=== PATIENT | male | born 1985 | race Caucasian/White ===

== ENCOUNTER 2022-07-01 19:51 | Inpatient (IN) | payer MEDICAID, SELFPAY ==
[2022-07-01] VITALS (9 sets, daily range): BP systolic 129–154; BP diastolic 64–91; PULSE 79–103; RESP 12–18; TEMP 36.9–37.1; O2SAT 90–96; BMI 27.1; BMI 25.2
--- NOTE | 2022-07-01 20:00 | ECG_ITS ---
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 Measurements Intervals [place] Rate: 97 P: 52 [place]: 163 QRS: 73 QRSD: 88 T: 52 QT: 335 QTc: 427 Interpretive Statements SINUS RHYTHM POSSIBLE LEFT ATRIAL ENLARGEMENT [-0.1mV P-WAVE IN V1/V2] Compared to ECG 09/04/2016 18:16:11 Sinus tachycardia no longer present Early repolarization no longer present Electronically Signed On 07-02-2022 22:57:45 CDT by Felisa Pappas M.D. [email or web address].[employer]/store/NU/[id number]
[2022-07-01 20:29] LABS: Basophils # 0.1 10^3/uL (0.0-0.1); Basophils % 0.4 %; Eosinophils # 0.2 10^3/uL (0.0-0.8); Eosinophils % 1.4 %; Hematocrit 44.7 % (42.0-52.0); Hemoglobin 15.6 g/dL (11.7-16.6); Lymphocytes # 4.2 10^3/uL (0.8-4.8); Mean Corpuscular HGB Conc 34.9 g/dL (30.0-36.0); Mean Corpuscular Hemoglobin 32.2 pg (28.0-34.0); Mean Corpuscular Volume 92.4 fl (80-94); Mean Platelet Volume 9.5 fL (7.4-10.4); Monocytes # 0.6 10^3/uL (0.2-0.9); Monocytes % 4.3 %; Neutrophils # 8.92 10^3/uL (1.8-7.7); Neutrophils % 63.5 %; Nucleated Red Blood Cells % 0 %; Platelet Count 310 10^3/cmm (130-400); Red Blood Count 4.84 10^6/uL (4.1-5.3); White Blood Count 14.1 10^3/uL (4.0-10.0)
[2022-07-01 21:00] LABS: Alanine Aminotransferase 31 U/L (0-41); Albumin Level 4.5 g/dL (3.5-5.2); Alcohol Level 263 mg/dL (0-10); Alkaline Phosphatase 124 U/L (40-130); Anion Gap 17.9 (5-19); Aspartate Amino Transferase 37 U/L (0-40); Blood Urea Nitrogen 14 mg/dL (6-20); Calcium 9.7 mg/dL (8.5-10.5); Carbon Dioxide 25 mmol/L (22-29); Chloride 97 mmol/L (98-107); Globulin 3.7 g/dL (1.3-4.6); Glomerular Filtration Rate 95.5 mL/min (90-130); Glucose 83 mg/dL (65-115); Osmolality Calculated 282 mOsm/kg (285-295); Potassium 3.9 mmol/L (3.5-5.1); Sodium 136 mmol/L (136-145); Thyroid Stimulating Hormone 1.99 uIU/mL (0.27-4.20); Total Bilirubin 0.4 mg/dL (0.15-1.2); Total Protein 8.2 g/dL (6.6-8.7)
[2022-07-01 21:02] LABS: Add Urine Microscopic? NO; Charge for UA Resulting for Rev
[2022-07-01 21:04] LABS: Acetaminophen < 5.0 ug/mL (10-30); Salicylate < 0.3 mg/dL (3-10)
[2022-07-01] MEDS: sodium chloride 0.9% 1,000 ML 999 ML IV (21:04)
[2022-07-01 21:05] LABS: Bilirubin Urine Neg (Negative); Blood Urine Neg (Negative); Glucose Urine UA Norm (Normal); Ketones Urine Negative (Negative); Leukocyte Esterase Urine Negative (Negative); Nitrate Urine Negative (Negative); Protein Urine Neg (Negative); Specific Gravity, Urine 1.005 (1.005-1.030); Urine Appearance Clear (CLEAR); Urine Color Colorless (Yellow); Urobilinogen Urine Neg (Negative); pH Urine 6 (5-7)
[2022-07-01 21:14] LABS: Amphetamines Screen Urine Negative (Negative); Barbiturates Screen Urine Negative (Negative); Benzodiazepines Screen Urine Positive (Negative); Cocaine Screen Urine Negative (Negative); Opiate Screen Urine Negative (Negative); PCP Screen Urine Negative (Negative); THC Screen Urine Positive (Negative)
--- NOTE | 2022-07-01 23:15 | PC.NURSE ---
Pt arrived from ER via wheelchair @1913. pt belongings in labeled bags @ nurses station. Pt is calm and cooperative. 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 HR NSR 80's. SpO2 94%
--- NOTE | 2022-07-01 23:32 | P.HP_ITS ---
Providers/Chief Complaint Admitting Physician: Lambert Zendejas Chief Complaint: OD History of Present Illness 37-year-old gentleman was brought in for evaluation by EMS after overdose of a handful, at least 10 per EMS report fluoxetine tablets. Most recent prescription 06/18 of 30 tablets of 40 mg strength. An empty bottle was re ported. It is unclear if it was from the new prescription or prior. He reportedly did not think there would be any lethal consequences. Overdose happened around 6 PM. He had also reported drinking whiskey. Reported being angered and provoked. Noted abrasions on his knuckles which he states he hussein stained after forgetting gloves and training on a punching bag at the gym. In ER he is found to be with sinus tachycardia 103 BPM. EKG is requested. Leukocytosis 14.1. Unremarkable CMP, UA. UDS with ethyl alcohol level 263 mg/dL, THC, benzodiazepine. He confirms that he has been going through an emotional time, has been feeling depressed, states he has been trying to quit drinking and that has been a big factor for him feeling depressed. Denies suicidal intentions. He states that he has been seeing Dr. Mojica for depression who has been overseeing his medication although has not had therapy so far. Review of Systems Const: Denies: fever(s), chills, body aches or malaise Card: Denies: chest pain, edema, pre-syncope or dyspnea on exertion Resp: Denies: dyspnea, productive cough, change in phlegm color or hemoptysis GI: Denies: abdominal pain, nausea, vomiting, diarrhea, constipation, hematochezia or melena Musc: Denies: back pain, joint swelling or joint redness Skin/Breast: Denies: rash or new lesions Neuro: Denies: headache(s), numbness in extremities, weakness in extremities, dizziness, confusion or seizure-like activity Psych: Reports: depression Endo: Denies: polyuria or polydipsia Joe/Lymph: Denies: easy bleeding or tender lymph nodes All/Imm: Denies: urticaria or tongue swelling Medications/Allergies Home Medications Medication Instructions Recorded Confirmed Last Taken Type esomeprazole magnesium 20 mg 20 mg PO DAILY 02/28/22 06/18/22 Unknown History capsule,delayed release (Nexium 24HR) hydroxyzine HCl 50 mg tablet 50 mg PO QID PRN insomnia #120 tabs 08/26/22 10/10/22 Unknown Rx naltrexone 50 mg tablet 50 mg PO DAILY #30 tabs 05/04/22 06/18/22 Unknown Rx gabapentin 800 mg tablet 800 mg PO TID #90 tabs 06/08/22 06/18/22 Unknown Rx propranolol 20 mg tablet 20 mg PO BID PRN anxiety #60 tabs 06/08/22 06/18/22 Unknown Rx fluoxetine 40 mg capsule (Prozac) 40 mg PO DAILY #30 caps 06/18/22 06/18/22 Unknown Rx Allergies Allergy/AdvReac Type Severity Reaction Status Date / Time trazodone AdvReac Intermediate priapism Verified 07/01/22 23:44 PFSH Acute PFSH: Medical History History of alcohol use disorder Psychiatric care Family History Father CHF (congestive heart failure) Other Diabetes H/O ETOH abuse Social History Smoking and tobacco status: current every day smoker smokeless tobacco Smokeless tobacco user: snuff Smokeless tobacco details: 1 can/2-3 days. Quit status (tobacco): has tried quititng Number of times tried to quit tobacco: 2 Second hand smoke exposure: No Smoking risk assessment/counseling performed?: No Alcohol intake: current Alcohol intake frequency: 0-2 Drinks per Day Alcohol type: beer and hard liquor Desire information about alcohol rehabilitation?: No Counseling given: No Desire information about substance/drug rehabilitation?: No Counseling given: No Vitals/I&O/Wt Last Vital Signs Temp 98.4 F 07/01/22 19:56 Pulse 82 07/01/22 22:48 Resp 16 07/01/22 22:48 BP 131/72 07/01/22 21:30 Pulse Ox 96 07/01/22 22:48 O2 Del Method 07/01/22 21:00 Weight last 48 hrs Weight 88.451 kg Physical Exam Const: COMMON NORMALS: patient oriented x3 and alert GENERAL APPEARANCE: cooperative ORIENTATION/CONSCIOUSNESS: Yes awake HENMT: COMMON NORMALS: oropharynx normal Neck/C-Spine: COMMON NORMALS: no JVD Resp: COMMON NORMALS: normal respiratory effort and clear to auscultation bilaterally AUSCULTATION: clear to auscultation bilaterally Cardio: COMMON NORMALS: no JVD, regular rhythm, S1 normal heart sound present, S2 normal heart sound present and No murmurs present (Cardio) RHYTHM: regular rhythm HEART SOUNDS: S1 normal heart sound present and S2 normal heart sound present GI: COMMON NORMALS: Normal to inspection, nondistended, normoactive bowel sounds present, Soft to palpation and non-tender PALPATION: Yes Soft to palpation Extremity: COMMON NORMALS: no joint enlargement and no pedal edema Neuro: COMMON NORMALS: patient oriented x3 and moves all extremities SEN SORIUM/ORIENTATION: Yes alert Skin: COMMON NORMALS: no rashes or lesions noted GENERAL SKIN EXAM: no rashes or lesions noted Data : 07/01/22 20:00 07/01/22 20:00 A&P Assessment and plan (1) Medication overdose: He states he feels he took about 6 or 7 tablets, but he states that that is what was remaining in the bottle from a recent prescription of the 40 mg tablets, he took what ever was left in there. has been feeling depressed recently at least in part due to difficulties with quitting drinking. He states he has been taking 2 medications to help him with symptoms and reduce cravings of alcohol including naltrexone. Discussed with him we will monitor for development of arrhythmia with cardiac monitoring given also potential interaction with other medications including hydroxyzine, although he states he has taken fewer of those recently. Had been taking in the past to help him sleep. has not been taking trazodone. Will additionally reassess liver parameters in the morning, which he would like to do. Additional event discussed with him that he will be also assessed by psychiatry to also help assess depression and help him deal with it. (2) Depression: Pending psychiatric assessment. (3) Alcohol use disorder: He has been having difficulties quitting. Monitor for withdrawal, although had prior admission with intoxication, did not go through withdrawal at that time. Plan Smoking addiction: Nicotine replacement as needed. Encourage cessation. Leukocytosis: Not entirely clear reason of leukocytosis. Urinalysis not suggestive of UTI. She has not had respiratory or other symptoms. Possibly stress related, will reassess blood count again. Monitor for any changes in symptoms. Attestations Medical Necessity Statement*: Place in observation for additional assessment following medication overdose, depression, difficulties quitting alcohol, pending psychiatric assessment. 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
[2022-07-02] VITALS (38 sets, daily range): BP systolic 106–144; BP diastolic 60–83; PULSE 57–85; RESP 11–20; O2SAT 90–95
[2022-07-02 03:58] LABS: Basophils % 0.4 %; Eosinophils # 0.3 10^3/uL (0.0-0.8); Eosinophils % 2.7 %; Hematocrit 40.1 % (42.0-52.0); Hemoglobin 13.4 g/dL (11.7-16.6); Lymphocytes # 3.1 10^3/uL (0.8-4.8); Lymphocytes % 29.1 %; Mean Corpuscular HGB Conc 33.4 g/dL (30.0-36.0); Mean Corpuscular Hemoglobin 31.5 pg (28.0-34.0); Mean Corpuscular Volume 94.4 fl (80-94); Mean Platelet Volume 9.2 fL (7.4-10.4); Monocytes # 0.6 10^3/uL (0.2-0.9); Monocytes % 5.6 %; Neutrophils # 6.54 10^3/uL (1.8-7.7); Neutrophils % 61.9 %; Nucleated Red Blood Cells % 0 %; Platelet Count 231 10^3/cmm (130-400); Red Blood Count 4.25 10^6/uL (4.1-5.3); Red Cell Distribution Width 12.2 % (12.1-15.1); White Blood Count 10.6 10^3/uL (4.0-10.0)
[2022-07-02 04:27] LABS: Alanine Aminotransferase 25 U/L (0-41); Albumin Level 3.6 g/dL (3.5-5.2); Alkaline Phosphatase 99 U/L (40-130); Anion Gap 14.9 (5-19); Aspartate Amino Transferase 27 U/L (0-40); Blood Urea Nitrogen 12 mg/dL (6-20); Calcium 8.7 mg/dL (8.5-10.5); Carbon Dioxide 22 mmol/L (22-29); Chloride 103 mmol/L (98-107); Creatinine Clr Calc Pharmacy 140.7055; Globulin 3.1 g/dL (1.3-4.6); Glomerular Filtration Rate 109.4 mL/min (90-130); Glucose 70 mg/dL (65-115); Osmolality Calculated 280 mOsm/kg (285-295); Potassium 3.9 mmol/L (3.5-5.1); Sodium 136 mmol/L (136-145); Total Bilirubin 0.3 mg/dL (0.15-1.2); Total Protein 6.7 g/dL (6.6-8.7)
--- NOTE | 2022-07-02 12:36 | PC.CHAP ---
Pastoral Care Encounter/Spiritual Assessment Type of Contact [] Declined payable manager visit [] Patient/Family/Request visit [] Outpatient visit [] Follow-up visit [] Physician referral [] Code/Alert [z] Routine visit [] Staff referral [] Actively dying [] Patient sleeping [] Family support [] [] Out of room [] Palliative care [] [] Receiving care in room [] Pre-surgical visit [] Trauma [] Long length of stay [z] ICU visit [x] Other: PT not real social .. but agreed to prayer Relational/Emotional Strength [] Patient feels connected with others/family/visitors/staff [] Distress [] Loneliness/isolation [] Abandonment Spirituality of Patient [] Person of Marily [] Attends Sikh of their Marily [] Believes in Prayer [] Reads Bible or Confucianism materials [] There are Spiritual issues to be addressed Storage Administrator Interventions [z] Prayer [] Active listening [] Non-anxious presence [] Spiritual/emotional support [] Crisis/trauma care [] Spiritual counseling [] Bereavement support [] Provided bereavement packet [] Provided Bible/devotional materials [] Provided toy/stuffed animal, coloring book to patient or family member [] Provided Communion [] Anointing/[place] [] Salvation [] Completed spiritual assessment [] Other: Impact on Illness or Injury [] Angry [] Fearful [] Anxious [] Often cries [] Exhaustion [] Unable to work [] Unable to attend religious [] Unable to walk/stand [] Unable to read [] Unable to drive [] Unable to eat/drink [] Unable to sleep [] Unable to be with family [] Patient intubated [] Other: Summary Time spent with patient
--- NOTE | 2022-07-02 14:49 | ECG_ITS ---
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 Measurements Intervals [place] Rate: 69 P: 38 [place]: 167 QRS: 62 QRSD: 90 T: 46 QT: 412 QTc: 444 Interpretive Statements SINUS RHYTHM WITH SINUS ARRHYTHMIA Compared to ECG 07/01/2022 20:00:07 No significant changes Electronically Signed On 07-02-2022 23:07:10 CDT by Felisa Pappas M.D. [email or web address] medicineCritical [employer]aceuticals/store/OM/[id number]
--- NOTE | 2022-07-02 14:50 | PM.PN ---
Subjective Subjective: Seen this morning. Denies any suicidal ideation. Denies chest pain, shortness of breath. No arrhythmias noted on telemetry overnight. Vitals are stable. Vitals/I&O/Wt Last Vital Signs Temp 98.8 F 07/01/22 23:45 Pulse 78 07/02/22 13:00 Resp 15 07/02/22 13:00 BP 125/79 07/02/22 13:00 Pulse Ox 94 07/02/22 13:00 O2 Del Method 07/02/22 13:00 07/01/22 07/02/22 07/02/22 22:59 06:59 14:59 Intake Total 1200 / 1200 240 / 240 Balance 1200 / 1200 240 / 240 Weight last 48 hrs Weight 81.873 kg Weight 88.451 kg Physical Exam Const: COMMON NORMALS: patient oriented x3 and alert GENERAL APPEARANCE: cooperative ORIENTATION/CONSCIOUSNESS: Yes awake HENMT: COMMON NORMALS: oropharynx normal Neck/C-Spine: COMMON NORMALS: no JVD Resp: COMMON NORMALS: normal respiratory effort and clear to auscultation bilaterally AUSCULTATION: clear to auscultation bilaterally Cardio: COMMON NORMALS: no JVD, regular rhythm, S1 normal heart sound present, S2 normal heart sound present and No murmurs present (Cardio) RHYTHM: regular rhythm HEART SOUNDS: S1 normal heart sound present and S2 normal heart sound present GI: COMMON NORMALS: Normal to inspection, nondistended, normoactive bowel sounds present, Soft to palpation and non-tender PALPATION: Yes Soft to palpation Extremity: COMMON NORMALS: no joint enlargement and no pedal edema Neuro: COMMON NORMALS: patient oriented x3 and moves all extremities SENSORIUM/ORIENTATION: Yes alert Skin: COMMON NORMALS: no rashes or lesions noted GENERAL SKIN EXAM: no rashes or lesions noted Data : 07/02/22 03:43 07/02/22 03:43 A&P Assessment and plan (1) Medication overdose: He states he feels he took about 6 or 7 tablets, but he states that that is what was remaining in the bottle from a recent prescription of the 40 mg tablets, he took what ever was left in there. States has been feeling depressed recently at least in part due to difficulties with quitting drinking. He states he has been taking 2 medications to help him with symptoms and reduce cravings of alcohol including naltrexone. Discussed with him we will monitor for development of arrhythmia with cardiac monitoring given also potential interaction with other medications including hydroxyzine, although he states he has taken fewer of those recently. Had been taking in the past to help him sleep. States has not been taking trazodone. Will additionally reassess liver parameters in the morning, which he would like to do. Additional event discussed with him that he will be also assessed by psychiatry to also help assess depression and help him deal with it. Pending psych evaluation. (2) Depression: Pending psychiatric assessment. (3) Alcohol use disorder: He has been having difficulties quitting. Monitor for withdrawal, although had prior admission with intoxication, did not go through withdrawal at that time. Plan Smoking addiction: Nicotine replacement as needed. Encourage cessation. Leukocytosis: Not entirely clear reason of leukocytosis. Urinalysis not suggestive of UTI. She has not had respiratory or other symptoms. Possibly stress related, will reassess blood count again. Monitor for any changes in symptoms. Today's plan ? Continue to monitor patient for alcohol withdrawal ? Check EKG to check QTC. Psych eval pending 96-hour hold to start once transferred to psych [facility]. Will monitor in ICU today and potentially transfer to psych later on. Attestations Medical Necessity Statement*: Patient to begin 96-hour hold once medically stable. 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
--- NOTE | 2022-07-02 14:59 | PC.NURSE ---
Wallet Patient requested that his wallet be sent home with his mother so she could pay his child support. No other belongings sent.
[2022-07-02] MEDS: PHENobarbital 130 mg/mL SDV 1 mL IV (15:47)
[2022-07-02] MEDS: nicotine 21 mg Patch 1 PATCH TRANSDERMA (15:54)
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
--- NOTE | 2022-07-02 19:31 | PC.NURSE ---
came to see patient. Patient explained what led to admission. Pt stated: I just got mad, I drank more than I have drank in a long time. I only took the rest of those pills because I thought it might help my anger. I did not take any other pills. I did not want to kill myself or hurt myself. I have a good support system at home, my and my mom. Nobody in my family has a history of mental illness or drug/alcohol abuse. Dr and pt discussed next steps. told pt the 96 hr hold would not start until pt arrived in psych unit, but that psych unit did not have any available beds. Pt stated that he was missing work and has bills to pay and a child to feed and no insurance to pay for this stay. Pt stated he wanted help and was eager to get help and get home. questioned pt and this nurse what the plan was when pt was admitted. Nurse consulted that half-life of medicine was by 0200 today, so pt was medically cleared and ready to be evaluated by psych. stated he would see pt tomorrow and go from there. When left, pt was visibly in distress and tearful.
[2022-07-03] VITALS (17 sets, daily range): BP systolic 113–144; BP diastolic 72–95; PULSE 58–82; RESP 12–18; TEMP 36.4–37.1; O2SAT 91–99; BMI 27.9
[2022-07-03 02:49] LABS: Basophils % 0.3 %; Eosinophils # 0.4 10^3/uL (0.0-0.8); Eosinophils % 3.7 %; Hemoglobin 14.2 g/dL (11.7-16.6); Lymphocytes # 2.4 10^3/uL (0.8-4.8); Lymphocytes % 24.7 %; Mean Corpuscular HGB Conc 34.6 g/dL (30.0-36.0); Mean Corpuscular Hemoglobin 32.1 pg (28.0-34.0); Mean Corpuscular Volume 92.8 fl (80-94); Mean Platelet Volume 8.9 fL (7.4-10.4); Monocytes # 0.7 10^3/uL (0.2-0.9); Monocytes % 7.1 %; Neutrophils # 6.07 10^3/uL (1.8-7.7); Neutrophils % 63.8 %; Nucleated Red Blood Cells % 0 %; Platelet Count 226 10^3/cmm (130-400); Red Blood Count 4.42 10^6/uL (4.1-5.3); Red Cell Distribution Width 11.8 % (12.1-15.1); White Blood Count 9.5 10^3/uL (4.0-10.0)
[2022-07-03 03:14] LABS: Anion Gap 16.7 (5-19); Blood Urea Nitrogen 11 mg/dL (6-20); Calcium 9.2 mg/dL (8.5-10.5); Carbon Dioxide 24 mmol/L (22-29); Chloride 95 mmol/L (98-107); Glomerular Filtration Rate 127.6 mL/min (90-130); Glucose 76 mg/dL (65-115); Magnesium 1.7 mg/dL (1.7-2.3); Osmolality Calculated 272 mOsm/kg (285-295); Potassium 3.7 mmol/L (3.5-5.1); Sodium 132 mmol/L (136-145)
--- NOTE | 2022-07-03 10:04 | W.ED.OVERDOS ---
HPI - Overdose General: Chief Complaint: Overdose Stated Complaint: OD Time Seen by Provider: 07/01/22 19:52 Source: patient, EMS and police Mode of arrival: EMS History of Present Illness: 37 year old male he was upset this evening. And he had been drinking some alcohol. He was quite anxious. He takes Prozac for his anxiety, and since he was having such trouble, decided to take several. He took ?a handful? which amounts to around 7 to 8 per his history. He is asymptomatic from this. He maintains that he was not trying to harm himself. He has no wishes to harm anyone else, and is not suicidal by his report. complaint: accidental overdose Onset (ago): hour(s) Time: 18:00 Timing confirmed by: other Intent: other How Overdose Was Discovered: family/friend present at time Context: Intentional Overdose: relationship problems Context: Accidental Overdose: medication error Associated symptoms: depression Treatments Prior to Arrival: none Review of Systems Const: Denies: fever(s) or chills Eyes: Denies: change in vision Card: Denies: chest pain or palpitations Resp: Denies: dyspnea, productive cough or non-productive cough GI: Denies: abdominal pain, nausea, vomiting or hematemesis Skin/Breast: Denies: rash Neuro: Denies: headache(s), numbness in extremities or weakness in extremities Psych: Reports: anxiety and depression PFS ED PFSH: Medical History History of alcohol use disorder Psychiatric care Family History Father CHF (congestive heart failure) Other Diabetes H/O ETOH abuse Social History Smoking and tobacco status: current every day smoker smokeless tobacco Smokeless tobacco user: snuff Smokeless tobacco details: 1 can/2-3 days. Quit status (tobacco): has tried quititng Number of times tried to quit tobacco: 2 Second hand smoke exposure: No Smoking risk assessment/counseling performed?: No Alcohol intake: current Alcohol intake frequency: 0-2 Drinks per Day Alcohol type: beer and hard liquor Desire information about alcohol rehabilitation?: No Counseling given: No Desire information about substance/drug rehabilitation?: No Counseling given: No Physical Exam Const: COMMON NORMALS: no acute distress GENERAL APPEARANCE: cooperative; not ill appearing and not frail appearing HENMT: COMMON NORMALS: normocephalic, atraumatic and Normal external nose present HEAD & SCALP: normocephalic and atraumatic FACE & SINUS: normal facial exam and face symmetric NOSE: Normal external nose present Eye: COMMON NORMALS: Equal, round and reactive pupils present and EOMs intact bilaterally PUPIL: Yes Equal, round and reactive pupils present Neck/C-Spine: GENERAL: Yes trachea midline Chest: CHEST: Yes Symmetrical chest wall rise Resp: COMMON NORMALS: normal respiratory effort, No retractions, No use of accessory muscles and clear to auscultation bilaterally AUSCULTATION: clear to auscultation bilaterally Cardio: COMMON NORMALS: regular rate and regular rhythm RATE: regular rate RHYTHM: regular rhythm GI: COMMON NORMALS: Normal to inspection, nondistended, normoactive bowel sounds present Extremity: COMMON NORMALS: no pedal edema Neuro: LYDIA COMA SCALE: document GCS findings [place] coma scale eye opening: Spontaneous [place] coma scale verbal response: Orientated Lydia coma scale motor response: Obey commands Lydia coma scale total score: 15 SENSORY EXAM: Yes extremities (intact) Psych: COMMON NORMALS: cooperative and speech normal APPEARANCE: Yes grossly normal ATTITUDE: Yes calm ACTIVITY/MOTOR BEHAVIOR: Yes appropriate eye contact SPEECH: Yes normal speech Skin: COMMON NORMALS: no rashes or lesions noted GENERAL SKIN EXAM: no rashes or lesions noted Course Vital Signs: Vital signs: Vital Signs Temperature 98.8 F 07/01/22 23:45 Pulse Rate 60 07/03/22 08:00 Respiratory Rate 16 07/03/22 08:00 Blood Pressure 132/78 07/03/22 08:00 Pulse Oximetry 94 07/03/22 08:00 Oxygen Delivery Me thod 07/03/22 08:00 MDM - Overdose Medical Decision Making Due to the exceptionally long half life of Prozac, and discrepancy in pill count in which he may have taken as many as 18 pills, the patient will require an extended period of monitoring. You will go to the ICU. 96 hour paperwork has been filed filled out in case the patient tries to leave. This was done after discussion with psychiatry in that The poor judgment of taking too much medication combined with intoxication with alcohol, puts the patient at risk for self harm. He maintains he is not suicidal, but is willing to stay for monitoring, and to see psychiatry in the morning. Lab Data : 07/03/22 02:42 07/03/22 02:42 Laboratory Results WBC 10.6 10^3/uL (4.0-10.0) H 07/02/22 03:43 RBC 4.25 10^6/uL (4.1-5.3) 07/02/22 03:43 Hgb 13.4 g/dL (11.7-16.6) 07/02/22 03:43 Hct 40.1 % (42.0-52.0) L 07/02/22 03:43 MCV 94.4 fl (80-94) H 07/02/22 03:43 MCH 31.5 pg (28.0-34.0) 07/02/22 03:43 MCHC 33.4 g/dL (30.0-36.0) 07/02/22 03:43 RDW 12.2 % (12.1-15.1) 07/02/22 03:43 Plt Count 231 10^3/cmm (130-400) 07/02/22 03:43 MPV 9.2 fL (7.4-10.4) 07/02/22 03:43 Neut % (Auto) 61.9 % 07/02/22 03:43 Lymph % (Auto) 29.1 % 07/02/22 03:43 Darke % (Auto) 5.6 % 07/02/22 03:43 Eos % (Auto) 2.7 % 07/02/22 03:43 Baso % (Auto) 0.4 % 07/02/22 03:43 Neut # (Auto) 6.54 10^3/uL (1.8-7.7) 07/02/22 03:43 Lymph # (Auto) 3.1 10^3/uL (0.8-4.8) 07/02/22 03:43 Darke # (Auto) 0.6 10^3/uL (0.2-0.9) 07/02/22 03:43 Eos # (Auto) 0.3 10^3/uL (0.0-0.8) 07/02/22 03:43 Baso # (Auto) 0.0 10^3/uL (0.0-0.1) 07/02/22 03:43 Nucleated RBC % (auto) 0 % 07/02/22 03:43 Nucleated RBCs # 0.0 /100WBC 07/02/22 03:43 Sodium 136 mmol/L (136-145) 07/02/22 03:43 Potassium 3.9 mmol/L (3.5-5.1) 07/02/22 03:43 Chloride 103 mmol/L (98-107) 07/02/22 03:43 Carbon Dioxide 22 mmol/L (22-29) 07/02/22 03:43 Anion Gap 14.9 (5-19) 07/02/22 03:43 BUN 12 mg/dL (6-20) 07/02/22 03:43 Creatinine 0.8 mg/dL (0.7-1.2) 07/02/22 03:43 GFR Calculation 109.4 mL/min (90-130) 07/02/22 03:43 Glucose 70 mg/dL (65-115) 07/02/22 03:43 Calculated Osmolality 280 mOsm/kg (285-295) L 07/02/22 03:43 Calcium 8.7 mg/dL (8.5-10.5) 07/02/22 03:43 Total Bilirubin 0.3 mg/dL (0.15-1.2) 07/02/22 03:43 AST 27 U/L (0-40) 07/02/22 03:43 ALT 25 U/L (0-41) 07/02/22 03:43 Alkaline Phosphatase 99 U/L (40-130) 07/02/22 03:43 Total Protein 6.7 g/dL (6.6-8.7) 07/02/22 03:43 Albumin 3.6 g/dL (3.5-5.2) 07/02/22 03:43 Globulin 3.1 g/dL (1.3-4.6) 07/02/22 03:43 TSH 1.99 uIU/mL (0.27-4.20) 07/01/22 20:00 Urine Color Colorless (Yellow) 07/01/22 20:52 Urine Appearance Clear (CLEAR) 07/01/22 20:52 Urine pH 6 (5-7) 07/01/22 20:52 Ur Specific [place] 1.005 (1.005-1.030) 07/01/22 20:52 Urine Protein Neg (Negative) 07/01/22 20:52 Urine Glucose (UA) Norm (Normal) 07/01/22 20:52 Urine Ketones Negative (Negative) 07/01/22 20:52 Urine Blood Neg (Negative) 07/01/22 20:52 Urine Nitrate Negative (Negative) 07/01/22 20:52 Urine Bilirubin Neg (Negative) 07/01/22 20:52 Urine Urobilinogen Neg mg/dL (Negative) 07/01/22 20:52 Ur Leukocyte Esterase Negative (Negative) 07/01/22 20:52 Salicylates < 0.3 mg/dL (3-10) L 07/01/22 20:00 Urine Opiates Screen Negative ng/mL (Negative) 07/01/22 20:52 Acetaminophen < 5.0 ug/mL (10-30) L 07/01/22 20:00 Ur Barbiturates Screen Negative ng/mL (Negative) 07/01/22 20:52 Ur Phencyclidine Scrn Negative ng/mL (Negative) 07/01/22 20:52 Ur Amphetamines Screen Negative ng/mL (Negative) 07/01/22 20:52 U Benzodiazepines Scrn Positive ng/mL (Negative) H 07/01/22 20:52 Urine Cocaine Screen Negative ng/mL (Negative) 07/01/22 20:52 U Marijuana (THC) Screen Positive ng/mL (Negative) H 07/01/22 20:52 Ethyl Alcohol 263 mg/dL (0-10) H 07/01/22 20:00 Discharge Plan Discharge Patient Disposition: Admitted As Inpatient Admit Provider: Lambert Zendejas Clinical Impression: Medication overdose Condition: Stable Coding Level of Care Code ED Ophthalmic Surgeon for Barry Baron
--- NOTE | 2022-07-03 12:02 | PM.PN ---
Subjective Subjective: seen this am. no acute events overnight telemetry reviewed Vitals/I&O/Wt Last Vital Signs Temp 98.8 F 07/01/22 23:45 Pulse 60 07/03/22 08:00 Resp 16 07/03/22 08:00 BP 132/78 07/03/22 08:00 Pulse Ox 94 07/03/22 08:00 O2 Del Method 07/03/22 08:00 07/02/22 07/03/22 07/03/22 22:59 06:59 14:59 Intake Total 120 / 360 Output Total 500 / 500 Balance -380 / -140 Weight last 48 hrs Weight 81.873 kg Weight 88.451 kg Physical Exam HENMT: COMMON NORMALS: oropharynx normal Neck/C-Spine: COMMON NORMALS: no JVD Resp: COMMON NORMALS: normal respiratory effort and clear to auscultation bilaterally AUSCULTATION: clear to auscultation bilaterally Cardio: COMMON NORMALS: no JVD, regular rhythm, S1 normal heart sound present, S2 normal heart sound present and No murmurs present (Cardio) RHYTHM: regular rhythm HEART SOUNDS: S1 normal heart sound present and S2 normal heart sound present GI: COMMON NORMALS: Normal to inspection, nondistended, normoactive bowel sounds present, Soft to palpation and non-tender PALPATION: Yes Soft to palpation Extremity: COMMON NORMALS: no joint enlargement and no pedal edema Neuro: COMMON NORMALS: moves all extremities Skin: COMMON NORMALS: no rashes or lesions noted GENERAL SKIN EXAM: no rashes or lesions noted Data : 07/03/22 02:42 07/03/22 02:42 A&P Assessment and plan (1) Medication overdose: He states he feels he took about 6 or 7 tablets, but he states that that is what was remaining in the bottle from a recent prescription of the 40 mg tablets, he took what ever was left in there. has been feeling depressed recently at least in part due to difficulties with quitting drinking. He states he has been taking 2 medications to help him with symptoms and reduce cravings of alcohol including naltrexone. Discussed with him we will monitor for development of arrhythmia with cardiac monitoring given also potential interaction with other medications including hydroxyzine, although he states he has taken fewer of those recently. Had been taking in the past to help him sleep. has not been taking trazodone. Will additionally reassess liver parameters in the morning, which he would like to do. Additional event discussed with him that he will be also assessed by psychiatry to also help assess depression and help him deal with it. Pending psych evaluation. (2) Depression: Pending psychiatric assessment. (3) Alcohol use disorder: He has been having difficulties quitting. Monitor for withdrawal, although had prior admission with intoxication, did not go through withdrawal at that time. Plan Smoking addiction: Nicotine replacement as needed. Encourage cessation. Leukocytosis: Not entirely clear reason of leukocytosis. Urinalysis not suggestive of UTI. She has not had respiratory or other symptoms. Possibly stress related, will reassess blood count again. Monitor for any changes in symptoms. Leukocytosis is resolved. Today's plan ? Patient medically clear to. Psych eval pending 96-hour hold to start once transferred to psych [facility]. Will monitor in ICU today and potentially transfer to psych later on. Neuropsych Unit. Attestations Medical Necessity Statement*: On 96-hour hold. Patient cleared to go to Neuropsych Unit. Coding Level of Care Code Acute Coater Smoking Pipe for Barry Baron Diagnoses Medication overdose T50.901A Depression F32.A Alcohol use disorder
--- NOTE | 2022-07-03 12:06 | PC.CHAP ---
Pastoral Care Encounter/Spiritual Assessment Type of Contact [] Declined art gilder visit [] Patient/Family/Request visit [] Outpatient visit [] Follow-up visit [] Physician referral [] Code/Alert [x] Routine visit [] Staff referral [] Actively dying [] Patient sleeping [] Family support [] [] Out of room [] Palliative care [] [] Receiving care in room [] Pre-surgical visit [] Trauma [] Long length of stay [x] ICU visit [] Other: Relational/Emotional Strength [] Patient feels connected with others/family/visitors/staff [] Distress [] Loneliness/isolation [] Abandonment Spirituality of Patient [] Person of Marily [] Attends Synagogue of their Marily [] Believes in Prayer [] Reads Bible or Restoration materials [] There are Spiritual issues to be addressed Restaurant Lead Interventions x] Prayer [] Active listening [] Non-anxious presence [] Spiritual/emotional support [] Crisis/trauma care [] Spiritual counseling [] Bereavement support [] Provided bereavement packet [] Provided Bible/devotional materials [] Provided toy/stuffed animal, coloring book to patient or family member [] Provided Communion [] Anointing/Potter [] Salvation [] Completed spiritual assessment [] Other: Impact on Illness or Injury [] Angry [] Fearful [] Anxious [] Often cries [] Exhaustion [] Unable to work [] Unable to attend latter-day [] Unable to walk/stand [] Unable to read [] Unable to drive [] Unable to eat/drink [] Unable to sleep [] Unable to be with family [] Patient intubated [] Other: Summary Time spent with patient
[2022-07-03] MEDS: LORazepam 2 mg Tablet PO (16:57)
--- NOTE | 2022-07-03 17:12 | PC.NURSE ---
PT HAS HAD AN UNEVENTFUL SHIFT FOR THIS NURSE. PT HAS HAD MINIMAL AGITATION. PT IS STATING HE IS NOT SUICIDAL. PT HAS NO REQUESTS FOR THIS NURSE. REPORT CALLED TO GARRET MARIE IN NPU. IV REMOVED. PT TOLERATED WELL. PT SAFELY TRANSPORTED BY THIS NURSE AND SECURITY TO NPU.
[2022-07-03] MEDS: nicotine 2 mg Gum BUCCAL (17:50)
--- NOTE | 2022-07-03 18:00 | P.NPUPN_ITS ---
Subjective NPU Subjective: 37-year-old white male admitted after overdose on 7 tablets of Prozac 40 mg with a history of anxiety and alcohol dependence recently placed on medications to help him detox off of alcohol after significant history of alcohol use use for many years. Patient had denied any suicidal ideation today on interview. He had reported great motivation to stopping use of alcohol and stated that he had been given Librium Prozac hydroxyzine gabapentin in an effort to help with managing alcohol withdrawal symptoms. He had been placed on a CIWA and had been given Ativan earlier today. He reported no withdrawal symptoms currently but had reported that he had more anxiety when he had stepped down from Librium 30 mg a day down to 15 mg/day. He had reported desire to return home and manage his alcohol addiction on an outpatient basis and reported that he had tried to make a referral for himself for treatment at the [facility]. Mental Status Exam MSE Comments: He was alert and oriented to person place time and situation. His hygiene is appropriate. His sensorium was clear. Speech is regular rate rhythm volume tone and prosody. His eye contact was fair. There was no psychomotor changes noted and no evidence of psychomotor slow slowing either. He was pleasant and cooperative on interview. His mood was described as okay His affect appeared mood congruent but somewhat anxious. His thought process was linear logical and goal-directed. He minimized any auditory or visual loose Nations and minimized any suicidal or homicidal thoughts. His memory appeared intact in regards to recent and remote events. He was cooperative. His insight was poor. His judgment was poor. His impulse control appeared impaired at this time. Vitals/I&O/Wt Last Vital Signs Temp 98.8 F 07/03/22 16:28 Pulse 82 07/03/22 16:28 Resp 15 07/03/22 16:28 BP 128/82 07/03/22 16:28 Pulse Ox 96 07/03/22 16:28 O2 Del Method 07/03/22 16:34 Weight last 48 hrs Weight 88.451 kg Weight 81.873 kg Weight 88.451 kg Data NPU : 07/03/22 02:42 07/03/22 02:42 A&P Assessment and plan (1) Alcohol use disorder, severe, dependence: (2) Generalized anxiety disorder: (3) Depression: (4) Medication overdose: Plan 1.? Restart Propranolol, Naltrexone, and gabapentin as prescribed. [facility] protocol, begin standing librium order of 10mg tid, restart naltrexone 50mg, gabapentin 600mg tid, propranolol 20mg bid. 2.? Encourage individual, group and milieu therapy 3.? Continue q-15 minute check for safety 4.? Recommend sober living treatment at the highest level of care to which the patient is willing to commit. Involuntary Hold Information 96 Hour Hold: 96 Hour Involuntary Admission: No Attestations NPU Medical Necessity Statement*: Inpatient hospitalization is medically necessary and the clinically appropriate intervention at this time. We will monitor medications and make changes as indicated. Patient will be in the hospital for over two midnights. Likely length of stay is three to five days. Coding Level of Care Code Established Pt Acute Senior Search Marketing Analyst for Romieg Fwd Patient Type Established History Problem Focused Exam Problem Focused Medical Decision Making Straight Forward Diagnoses Alcohol use disorder, severe, dependence F10.20 Generalized anxiety disorder F41.1 Depression F32.A Medication overdose T50.804R
[2022-07-03] MEDS: gabapentin 300 mg Capsule 600 MG PO (19:57)
[2022-07-03] MEDS: chlordiazePOXIDE 10 mg Capsule PO (20:32)
[2022-07-04 05:56] VITALS: BP 118/83; PULSE 87; RESP 18; TEMP 36.4; O2SAT 97
[2022-07-04] MEDS: chlordiazePOXIDE 10 mg Capsule PO ×2 (10:41→14:32)
[2022-07-04] MEDS: gabapentin 300 mg Capsule 600 MG PO ×2 (10:42→14:32)
[2022-07-04] MEDS: naltrexone hcl 50 mg Tablet PO (10:42)
[2022-07-04] MEDS: pantoprazole DR 40 mg Tablet PO (10:42)
[2022-07-04] MEDS: propranolol 20 mg Tablet PO ×2 (10:42→18:02)
[2022-07-04] MEDS: nicotine 2 mg Gum BUCCAL ×2 (10:42→14:32)
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
[2022-07-04 14:00] VITALS: BP 132/94; PULSE 101; RESP 16; TEMP 36.6; O2SAT 97
[2022-07-04 17:42] VITALS: BP 118/83; PULSE 87; RESP 18; TEMP 36.4; O2SAT 97
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
== END 2022-07-04 18:25 | disposition home or self-care (01) | DRG 918 ==
LOC: ER 22:19 → ICU 22:49 → NP 07-03 16:11
PROVIDERS: Internal Medicine; Admitting Provider Internal Medicine; Emergency Provider Emergency Medicine; Visit Provider Psychiatry & Neurology Psychiatry
DX: T43.221A Poisoning by selective serotonin reuptake inhibitors, accidental (unintentional), initial encounter (principal); F10.229 Alcohol dependence with intoxication, unspecified; Y90.8 Blood alcohol level of 240 mg/100 ml or more; F12.90 Cannabis use, unspecified, uncomplicated; F17.220 Nicotine dependence, chewing tobacco, uncomplicated; R00.0 Tachycardia, unspecified; F41.1 Generalized anxiety disorder
CPT/HCPCS: 36415; 80048; 80053; 80306; 80307; 81003; 83735; 84443; 85025; 93005; 96360; 97150; 97165; 99285; G0378; J2560; J7030

== ENCOUNTER 2023-11-18 09:48 | Emergency (ER) | payer MEDICAID, SELFPAY ==
[2023-11-18 10:00] VITALS: BP 161/104; PULSE 86; RESP 21; TEMP 36.7; O2SAT 96; BMI 28.7
--- NOTE | 2023-11-18 10:00 | ED_ITS ---
HPI - Anxiety 2 General: Chief Complaint: Anxiety Stated Complaint: panic attack Time Seen by Provider: 11/18/23 09:49 Source: patient and family () Mode of arrival: ambulatory Limitations: no limitations History of Present Illness: Patient is a 38-year-old male who presents to ED today along with his with complaints of tremors, palpitations, feeling like his heart is racing, numbness and tingling to his extremities, severe anxiety, tunnel vision, and feeling like his stomach is in knots . states over the past several days he has been waking up feeling anxious with stomach pain and nausea. Patient does have a history of anxiety. Patient states he is an everyday alcohol drinker. He states he normally will drink 1 to 2 pints of hard alcohol a day. He does sometimes drink during the day. When asked if he ever requires a drink to help with his symptoms he responds yes . Denies drug use. Denies excessive caffeine use or energy drink use. He has no known medical problems that he is aware of but reportedly does not have a primary care that he sees routinely. MD complaint: anxiety and heart racing Onset (ago): hour(s) Symptoms: chest pain, palpitations, extremity numbness/tingling and muscle cramps Severity: moderate Place: home History of similar episodes: Yes Provoking factors: work/job stress Relieving factors: other (alcohol) Associated symptoms: Reports chest pain, nausea and palpitations; Deny chills, confusion, fever(s), headache(s), malaise or vomiting Review of Systems 2 Const: Denies: fever(s), chills, body aches, fatigue or malaise Eyes: Reports: blurry vision; Denies: change in vision, photophobia, floaters or seeing flashes ENMT: Denies: throat pain, odynophagia, ear or mastoid pain, nasal discharge, nasal congestion or sinus pain Card: Reports: chest pain, palpitations, lightheadedness and pre-syncope; Denies: irregular heart rhythm, edema, swelling of feet/ankles, dyspnea on exertion, orthopnea, leg pain with exertion or acrocyanosis Resp: Denies: productive cough, wheezing, pain on inspiration, hemoptysis or chest congestion GI: Reports: abdominal pain (states his stomach is in knots ) and nausea; Denies: vomiting or diarrhea : Denies: flank pain, difficulty urinating, dysuria, urinary frequency or urinary urgency Musc: Reports: muscle cramps; Denies: neck pain, back pain, extremity pain, extremity swelling or joint pain Skin/Breast: Denies: rash Neuro: Reports: numbness in extremities; Denies: headache(s), weakness in extremities, difficulty walking, confusion, behavioral changes, Slurred speech present, difficulty communicating thoughts or seizure-like activity Psych: Reports: anxiety PFSH ED 2 PFSH: Medical History History of alcohol use disorder Family History Father Congestive heart failure (CHF) Other Diabetes H/O ETOH abuse Social History Smoking and tobacco/nicotine status: current every day tobacco/nicotine user smokeless tobacco Smokeless tobacco user: snuff Smokeless tobacco details: 1 can/4-5 days. Quit status (tobacco/nicotine): has tried quititng Number of times tried to quit tobacco: 2 Second hand smoke exposure: No Alcohol intake: current Alcohol intake frequency: 0-2 Drinks per Day Alcohol type: beer and hard liquor Substance/Drug Use: former Date of last use: Marijuana- 2021. Meth - 04/2021 Physical Exam 2 Const: COMMON NORMALS: average body habitus, patient oriented x3, no limitations, healthy appearing, alert and well nourished GENERAL APPEARANCE: cooperative and anxious (tremulous) ORIENTATION/CONSCIOUSNESS: Yes awake, Yes oriented to person, Yes oriented to place and Yes oriented to time HENMT: COMMON NORMALS: normocephalic and atraumatic HEAD & SCALP: normal to inspection, normocephalic and atraumatic Eye: COMMON NORMALS: Equal, round and reactive pupils present and EOMs intact bilaterally GENERAL EYE: appearance normal, both eyes and all related structures and normal light reflex PUPIL: Yes Equal, round and reactive pupils present DIRECT OPHTHALMOSCOPY: Yes normal light reflex Neck/C-Spine: GENERAL: Yes normal visual inspection Resp: COMMON NORMALS: normal respiratory effort and clear to auscultation bilaterally AUSCULTATION: clear to auscultation bilaterally Cardio: COMMON NORMALS: regular rate and regular rhythm RATE: regular rate RHYTHM: regular rhythm GI: COMMON NORMALS: Normal to inspection, nondistended, normoactive bowel sounds present, Soft to palpation, non-tender, No hepatosplenomegaly present and no masses INSPECTION: Yes normal to inspection AUSCULTATION: Yes normoactive bowel sounds PALPATION: Yes Soft to palpation and Yes No hepatosplenomegaly present Back/Pelvis: COMMON NORMALS: thoracic and lumbar spine normal to inspection Extremity: GENERAL: Yes normal exam except as noted Neuro: LYDIA COMA SCALE: document GCS findings [place] coma scale eye opening: Spontaneous [place] coma scale verbal response: Orientated Lydia coma scale motor response: Obey commands [place] coma scale total score: 15 COMMON NORMALS: patient oriented x3, moves all extremities, no focal motor deficits and no sensory deficits noted SENSORIUM/ORIENTATION: Yes alert, Yes oriented to person, Yes oriented to place and Yes oriented to time SPEECH: speech normal GAIT: Yes Normal gait present MOTOR EXAM: 5/5 motor strength present throughout Skin: COMMON NORMALS: no rashes or lesions noted GENERAL SKIN EXAM: no rashes or lesions noted Course 2 Vital Signs: Vital signs: Vital Signs Temperature 98.1 F 11/18/23 10:00 Pulse Rate 86 11/18/23 10:00 Respiratory Rate 21 H 11/18/23 10:00 Blood Pressure 161/104 11/18/23 10:00 Pulse Oximetry 96 11/18/23 10:00 Oxygen Delivery Me thod Room Air 11/18/23 10:00 MDM - Anxiety Medical Decision Making Patient feeling much better after IV Ativan given here. His blood work is unremarkable apart from elevated AST/ALT. Gap mildly elevated. Alcohol of 87. I think patient's symptoms are secondary to acute alcohol withdrawal. He is admittedly drinking up to 2 pints of hard alcohol daily. Patient states he wants to stop drinking. We did discuss plan including a primary care provider and [facility] which he is agreeable to. He did request a prescription for Librium to start which he will be provided. Return ED precautions given. Medical Records I reviewed the patient's medical records. Lab Data I reviewed the patient's lab results. 11/18/23 10:31 11/18/23 10:31 Radiology Impressions Chest X-Ray 11/18/23 10:17 IMPRESSION: No acute findings. Laboratory Results WBC 4.37 10^3/uL (3.29-11.43) 11/18/23 10:31 RBC 4.70 10^6/uL (3.85-5.65) 11/18/23 10:31 Hgb 15.10 g/dL (11.27-16.99) 11/18/23 10:31 Hct 44.1 % (37-53) 11/18/23 10:31 MCV 93.8 fl (82-101) 11/18/23 10:31 MCH 32.1 pg (27-33) 11/18/23 10:31 MCHC 34.2 g/dL (30-55) 11/18/23 10:31 RDW 12.7 % (12.1-15.1) 11/18/23 10:31 Plt Count 194 10^3/cmm (157-399) 11/18/23 10:31 MPV 9.4 fL (7.4-10.4) 11/18/23 10:31 Neut % (Auto) 62.8 % 11/18/23 10:31 Lymph % (Auto) 27.0 % 11/18/23 10:31 [place] % (Auto) 6.6 % 11/18/23 10:31 Eos % (Auto) 2.3 % 11/18/23 10:31 Baso % (Auto) 1.1 % 11/18/23 10:31 Neut # (Auto) 2.74 10^3/uL (1.8-7.7) 11/18/23 10:31 Lymph # (Auto) 1.2 10^3/uL (0.8-4.8) 11/18/23 10:31 [place] # (Auto) 0.3 10^3/uL (0.2-0.9) 11/18/23 10:31 Eos # (Auto) 0.1 10^3/uL (0.0-0.8) 11/18/23 10:31 Baso # (Auto) 0.1 10^3/uL (0.0-0.1) 11/18/23 10:31 Nucleated RBC % (auto) 0 % 11/18/23 10:31 Nucleated RBCs # 0.0 /100WBC 11/18/23 10:31 Sodium 139 mmol/L (136-145) 11/18/23 10:31 Potassium 4.3 mmol/L (3.5-5.1) 11/18/23 10:31 Chloride 99 mmol/L (98-107) 11/18/23 10:31 Carbon Dioxide 22 mmol/L (22-29) 11/18/23 10:31 Anion Gap 22.3 (5-19) H 11/18/23 10:31 BUN 6 mg/dL (6-20) 11/18/23 10:31 Creatinine 0.8 mg/dL (0.7-1.2) 11/18/23 10:31 GFR Calculation 108.8 mL/min (90-130) 11/18/23 10:31 Glucose 96 mg/dL (65-115) 11/18/23 10:31 Calculated Osmolality 285 mOsm/kg (285-295) 11/18/23 10:31 Calcium 8.9 mg/dL (8.5-10.5) 11/18/23 10:31 Total Bilirubin 0.6 mg/dL (0.15-1.2) 11/18/23 10:31 AST 392 U/L (0-40) H 11/18/23 10:31 ALT 273 U/L (0-41) H 11/18/23 10:31 Alkaline Phosphatase 87 U/L (40-130) 11/18/23 10:31 Total Protein 7.9 g/dL (6.6-8.7) 11/18/23 10:31 Albumin 4.6 g/dL (3.5-5.2) 11/18/23 10:31 Globulin 3.3 g/dL (1.3-4.6) 11/18/23 10:31 TSH 2.95 uIU/mL (0.27-4.20) 11/18/23 10:31 Urine Opiates Screen Negative ng/mL (Negative) 11/18/23 11:30 Ur Barbiturates Screen Negative ng/mL (Negative) 11/18/23 11:30 Ur Phencyclidine Scrn Negative ng/mL (Negative) 11/18/23 11:30 Ur Amphetamines Screen Negative ng/mL (Negative) 11/18/23 11:30 U Benzodiazepines Scrn Negative ng/mL (Negative) 11/18/23 11:30 Urine Cocaine Screen Negative ng/mL (Negative) 11/18/23 11:30 U Marijuana (THC) Screen Positive ng/mL (Negative) H 11/18/23 11:30 Ethyl Alcohol 87 mg/dL (0-10) H 11/18/23 10:31 Hepatitis A IgM Ab Non-reactive (Nonreactive) 11/18/23 10:31 Hep Bs Antigen Non-reactive (Nonreactive) 11/18/23 10:31 Hep B Core IgM Ab Non-reactive (Nonreactive) 11/18/23 10:31 Hepatitis C Antibody Non-reactive (Nonreactive) 11/18/23 10:31 All radiology interpretation(s) finalized by discharge Discharge Plan Discharge Patient Disposition: Home Clinical Impression: Alcohol use disorder, severe, dependence, Anxiety Condition: Stable Prescriptions: New chlordiazepoxide HCl 25 mg capsule See Rx Instructions .ROUTE .COMPLEX Qty: 27 0RF Rx Instructions: Take 4 tabs q 6 hours on day 1. Take 2 tabs q 8 hours on day 2. Take 2 tabs q 12 hours on day 3. Take one tab daily on day 4. No Action Zyrtec 10 mg Capsule 10 mg PO DAILY PRN (Reason: Allergy Symptoms) Discharge Orders: Discharge ED (Routine); Ordered 11/18/23 Ordered By: Stephanie Currie Coding Level of Care Code ED Communication And Outreach Manager for Barry Baron
--- NOTE | 2023-11-18 10:17 | XRR_ITS ---
PROCEDURE INFORMATION: Exam: XR Chest Exam date and time: 11/18/2023 10:46 AM Age: 38 years old Clinical indication: Pain; Angina pectoris; Additional info: Chest pain TECHNIQUE: Imaging protocol: Radiologic exam of the chest. Views: 1 view. COMPARISON: No relevant prior studies available. FINDINGS: Lungs: Unremarkable. No consolidation. Pleural spaces: Unremarkable. No pleural effusion. No pneumothorax. Heart/Mediastinum: Unremarkable. No cardiomegaly. Bones/joints: Unremarkable. XR/XR chest 1V portable [id number] IMPRESSION: No acute findings.
--- NOTE | 2023-11-18 10:17 | ECG_ITS ---
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 Measurements Intervals [place] Rate: 77 P: 37 MS: 158 QRS: 75 QRSD: 87 T: 55 QT: 369 QTc: 418 Interpretive Statements SINUS RHYTHM Compared to ECG 07/02/2022 15:30:06 Sinus arrhythmia no longer present Electronically Signed On 11-18-2023 14:23:54 CDT by Fernando Last M.D. https://[employer].[employer]/store/OM/[id number]
[2023-11-18] MEDS: LORazepam 2 mg/mL INJ 10 mL MDV 1 MG IV (10:27)
[2023-11-18 10:38] LABS: Basophils # 0.1 10^3/uL (0.0-0.1); Basophils % 1.1 %; Eosinophils # 0.1 10^3/uL (0.0-0.8); Eosinophils % 2.3 %; Hematocrit 44.1 % (37-53); Lymphocytes # 1.2 10^3/uL (0.8-4.8); Mean Corpuscular HGB Conc 34.2 g/dL (30-55); Mean Corpuscular Hemoglobin 32.1 pg (27-33); Mean Corpuscular Volume 93.8 fl (82-101); Mean Platelet Volume 9.4 fL (7.4-10.4); Monocytes # 0.3 10^3/uL (0.2-0.9); Monocytes % 6.6 %; Neutrophils # 2.74 10^3/uL (1.8-7.7); Neutrophils % 62.8 %; Nucleated Red Blood Cells % 0 %; Platelet Count 194 10^3/cmm (157-399); Red Cell Distribution Width 12.7 % (12.1-15.1); White Blood Count 4.37 10^3/uL (3.29-11.43)
[2023-11-18 11:11] LABS: Alanine Aminotransferase 273 U/L (0-41); Albumin Level 4.6 g/dL (3.5-5.2); Alcohol Level 87 mg/dL (0-10); Alkaline Phosphatase 87 U/L (40-130); Aspartate Amino Transferase 392 U/L (0-40); Blood Urea Nitrogen 6 mg/dL (6-20); Calcium 8.9 mg/dL (8.5-10.5); Carbon Dioxide 22 mmol/L (22-29); Chloride 99 mmol/L (98-107); Creatinine Clr Calc Pharmacy 143.2115; Globulin 3.3 g/dL (1.3-4.6); Glomerular Filtration Rate 108.8 mL/min (90-130); Glucose 96 mg/dL (65-115); Osmolality Calculated 285 mOsm/kg (285-295); Sodium 139 mmol/L (136-145); Thyroid Stimulating Hormone 2.95 uIU/mL (0.27-4.20); Total Bilirubin 0.6 mg/dL (0.15-1.2); Total Protein 7.9 g/dL (6.6-8.7)
[2023-11-18 11:21] LABS: Anion Gap 22.3 (5-19); Potassium 4.3 mmol/L (3.5-5.1)
[2023-11-18 11:47] LABS: Amphetamines Screen Urine Negative (Negative); Barbiturates Screen Urine Negative (Negative); Benzodiazepines Screen Urine Negative (Negative); Cocaine Screen Urine Negative (Negative); Opiate Screen Urine Negative (Negative); PCP Screen Urine Negative (Negative); THC Screen Urine Positive (Negative)
[2023-11-18 12:09] LABS: Hepatitis A Antibody IgM Non-Reactive (Nonreactive); Hepatitis B Core IgM Non-Reactive (Nonreactive); Hepatitis B Surface Antigen Non-Reactive (Nonreactive); Hepatitis C Virus Antibody Non-Reactive (Nonreactive)
== END 2023-11-18 12:26 | disposition home or self-care (01) ==
PROVIDERS: Emergency Provider Physician Assistant
DX: F10.20 Alcohol dependence, uncomplicated (principal); F41.9 Anxiety disorder, unspecified; F17.220 Nicotine dependence, chewing tobacco, uncomplicated
CPT/HCPCS: 71045; 80053; 80074; 80306; 80307; 84443; 85025; 93005; 96374; 99285; J2060

== ENCOUNTER 2024-03-30 21:25 | Emergency (ER) | payer MEDICAID, SELFPAY ==
[2024-03-30 21:28] VITALS: BMI 27.2
--- NOTE | 2024-03-30 21:49 | W.ED.ALCOHOL ---
Documented by User: Neisha Palacios MD 03/31/24 11:06 HPI - Alcohol General: Chief Complaint: Alcohol Stated Complaint: MHE Time Seen by Provider: 03/30/24 21:26 Source: patient and police Limitations: no limitations History of Present Illness: 39-year-old male who has a long history of alcohol abuse he is splitting up with his and has been on a 2-day parisi he been found in a ditch tonight brought in by police with intoxication. Patient here is extremely intoxicated is able to tell me his name and answer questions EMS states he has never made any suicidal or homicidal statements I asked him directly and he denies being SI or HI no known trauma he has no signs of any injuries here Associated symptoms: Deny abdominal pain, nausea or vomiting Review of Systems Const: Denies: fever(s), chills, body aches or change in appetite ENMT: Denies: throat pain or dental pain Card: Denies: chest pain Resp: Denies: dyspnea GI: Denies: abdominal pain, nausea, vomiting or diarrhea Musc: Denies: neck pain or back pain Skin/Breast: Denies: rash Neuro: Denies: headache(s) PFSH ED PFSH: Medical History History of alcohol use disorder Family History Father Congestive heart failure (CHF) Other Diabetes H/O ETOH abuse Social History Smoking and tobacco/nicotine status: current every day tobacco/nicotine user smokeless tobacco Smokeless tobacco user: snuff Smokeless tobacco details: 1 can/4-5 days. Quit status (tobacco/nicotine): has tried quititng Number of times tried to quit tobacco: 2 Second hand smoke exposure: No Alcohol intake: current Alcohol intake frequency: 0-2 Drinks per Day Alcohol type: beer and hard liquor Substance/Drug Use: former Date of last use: Marijuana- 2021. Meth - 04/2021 Physical Exam Const: COMMON NORMALS: patient oriented x3 OTHER: Intoxicated HENMT: COMMON NORMALS: normocephalic and atraumatic HEAD & SCALP: normocephalic and atraumatic Eye: COMMON NORMALS: Equal, round and reactive pupils present PUPIL: Yes Equal, round and reactive pupils present Neck/C-Spine: COMMON NORMALS: full ROM and supple Chest: COMMONS NORMALS: normal inspection of the chest Resp: COMMON NORMALS: normal respiratory effort, No retractions, No use of accessory muscles and clear to auscultation bilaterally AUSCULTATION: clear to auscultation bilaterally Cardio: COMMON NORMALS: regular rate, regular rhythm and No murmurs present (Cardio) RATE: regular rate RHYTHM: regular rhythm GI: COMMON NORMALS: Normal to inspection, nondistended, normoactive bowel sounds present, Soft to palpation, non-tender and no masses PALPATION: Yes Soft to palpation Extremity: COMMON NORMALS: normal to inspection and full ROM Neuro: COMMON NORMALS: patient oriented x3 and moves all extremities Psych: COMMON NORMALS: cooperative THOUGHT CONTENT: No Suicidality present OTHER: Patient is very intoxicated here Skin: COMMON NORMALS: no rashes or lesions noted and no wounds GENERAL SKIN EXAM: no rashes or lesions noted Course Vital Signs: Vital signs: Vital Signs Pulse Rate 88 03/31/24 07:24 Respiratory Rate 16 03/31/24 06:00 Blood Pressure 114/71 03/31/24 07:24 Pulse Oximetry 95 03/31/24 07:24 Oxygen Delivery Az thod Room Air 03/31/24 06:00 MDM - Alcohol Medical Decision Making Patient care was transferred over to pr at shift change, reviewed the lab work, patient is very intoxicated. Will let the patient sleep it off and plan on discharging him in the morning. Patient presents here with alcohol intoxication he has made no suicidal or homicidal statements patient care transferred over to Dr. Horvath feel patient be stable for discharge once he is clinically sober Lab Data 03/30/24 22:21 03/30/24 22:21 Laboratory Results WBC 7.93 10^3/uL (3.29-11.43) 03/30/24 22:21 RBC 4.67 10^6/uL (3.85-5.65) 03/30/24 22:21 Hgb 14.90 g/dL (11.27-16.99) 03/30/24 22:21 Hct 44.3 % (37-53) 03/30/24 22:21 MCV 94.9 fl (82-101) 03/30/24 22:21 MCH 31.9 pg (27-33) 03/30/24 22:21 MCHC 33.6 g/dL (30-55) 03/30/24 22:21 RDW 12.0 % (12.1-15.1) L 03/30/24 22:21 Plt Count 295 10^3/cmm (157-399) 03/30/24 22:21 MPV 9.2 fL (7.4-10.4) 03/30/24 22:21 Neut % (Auto) 54.4 % 03/30/24 22:21 Lymph % (Auto) 39.7 % 03/30/24 22:21 [place] % (Auto) 3.8 % 03/30/24 22:21 Eos % (Auto) 1.3 % 03/30/24 22:21 Baso % (Auto) 0.5 % 03/30/24 22:21 Neut # (Auto) 4.32 10^3/uL (1.8-7.7) 03/30/24 22:21 Lymph # (Auto) 3.2 10^3/uL (0.8-4.8) 03/30/24 22:21 [place] # (Auto) 0.3 10^3/uL (0.2-0.9) 03/30/24 22:21 Eos # (Auto) 0.1 10^3/uL (0.0-0.8) 03/30/24 22:21 Baso # (Auto) 0.0 10^3/uL (0.0-0.1) 03/30/24 22:21 Nucleated RBC % (auto) 0 % 03/30/24 22:21 Nucleated RBCs # 0.0 /100WBC 03/30/24 22:21 Sodium 148 mmol/L (136-145) H 03/30/24 22:21 Potassium 3.7 mmol/L (3.5-5.1) 03/30/24 22:21 Chloride 106 mmol/L (98-107) 03/30/24 22:21 Carbon Dioxide 26 mmol/L (22-29) 03/30/24 22:21 Anion Gap 19.7 (5-19) H 03/30/24 22:21 BUN 5 mg/dL (6-20) L 03/30/24 22:21 Creatinine 1.0 mg/dL (0.7-1.2) 03/30/24 22:21 GFR Calculation 83.6 mL/min (90-130) L 03/30/24 22:21 Glucose 116 mg/dL (65-115) H 03/30/24 22:21 Calculated Osmolality 304 mOsm/kg (285-295) H 03/30/24 22:21 Calcium 8.6 mg/dL (8.5-10.5) 03/30/24 22:21 Total Bilirubin 0.3 mg/dL (0.15-1.2) 03/30/24 22:21 AST 30 U/L (0-40) 03/30/24 22:21 ALT 40 U/L (0-41) 03/30/24 22:21 Alkaline Phosphatase 69 U/L (40-130) 03/30/24 22:21 Total Protein 7.2 g/dL (6.6-8.7) 03/30/24 22:21 Albumin 4.6 g/dL (3.5-5.2) 03/30/24 22:21 Globulin 2.6 g/dL (1.3-4.6) 03/30/24 22:21 Salicylates < 0.3 mg/dL (3-10) L 03/30/24 22:21 Acetaminophen < 5.0 ug/mL (10-30) L 03/30/24 22:21 Ethyl Alcohol 410 mg/dL (0-10) H* 03/30/24 22:21 Discharge Plan Discharge Patient Disposition: Home Clinical Impression: Alcoholic intoxication Condition: Stable Prescriptions: No Action Zyrtec 10 mg Capsule 10 mg PO DAILY PRN (Reason: Allergy Symptoms) chlordiazepoxide HCl 25 mg capsule See Rx Instructions .ROUTE .COMPLEX Qty: 27 0RF Rx Instructions: Take 4 tabs q 6 hours on day 1. Take 2 tabs q 8 hours on day 2. Take 2 tabs q 12 hours on day 3. Take one tab daily on day 4. Discharge Orders: Discharge ED (Routine); Ordered 03/31/24 Ordered By: Kory Horvath Discharge Diet: Advance as tolerated Discharge Activity: Resume usual activity Patient Instructions: Alcohol Intoxication (ED) Activity Restrictions/Additional Instructions: Please refrain from using alcohol. Thank you for choosing [facility] for your healthcare needs today. Please realize that you were seen in the emergency department and that we are providing you with an emergency medical screening exam and this may not be a complete and all exclusive of all testing and/or medical workup we may need to determine your element or severity of your illness. It is very important that you follow-up as instructed with your primary care provider or specialist for the additional evaluation and to discuss your medical treatment plan. You may return to the emergency department should you have concerns or if your condition changes or worsens in any way. Coding Level of Care Code ED Concession Supervisor for Chg Fwd Documented by User: Kory Horvath DO 03/31/24 05:29 HPI - Alcohol General: Chief Complaint: Alcohol Stated Complaint: MHE Time Seen by Provider: 03/30/24 21:26 [facility] ED PFSH: Medical History History of alcohol use disorder Family History Father Congestive heart failure (CHF) Other Diabetes H/O ETOH abuse Social History Smoking and tobacco/nicotine status: current every day tobacco/nicotine user smokeless tobacco Smokeless tobacco user: snuff Smokeless tobacco details: 1 can/4-5 days. Quit status (tobacco/nicotine): has tried quititng Number of times tried to quit tobacco: 2 Second hand smoke exposure: No Alcohol intake: current Alcohol intake frequency: 0-2 Drinks per Day Alcohol type: beer and hard liquor Substance/Drug Use: former Date of last use: Marijuana- 2021. Meth - 04/2021 Course Vital Signs: Vital signs: Vital Signs Pulse Rate 88 03/31/24 07:24 Respiratory Rate 16 03/31/24 06:00 Blood Pressure 114/71 03/31/24 07:24 Pulse Oximetry 95 03/31/24 07:24 Oxygen Delivery Me thod Room Air 03/31/24 06:00 MDM - Alcohol Medical Decision Making Patient care was transferred over to pr at shift change, reviewed the lab work, patient is very intoxicated. Will let the patient sleep it off and plan on discharging him in the morning. Differential Diagnosis Likely alcohol intoxication Medical Records I reviewed the patient's medical records. Lab Data I reviewed the patient's lab results. 03/30/24 22:21 03/30/24 22: Laboratory Results WBC 7.93 10^3/uL (3.29-11.43) 03/30/24 22:21 RBC 4.67 10^6/uL (3.85-5.65) 03/30/24 22:21 Hgb 14.90 g/dL (11.27-16.99) 03/30/24 22:21 Hct 44.3 % (37-53) 03/30/24 22:21 MCV 94.9 fl (82-101) 03/30/24 22:21 MCH 31.9 pg (27-33) 03/30/24 22:21 MCHC 33.6 g/dL (30-55) 03/30/24 22:21 RDW 12.0 % (12.1-15.1) L 03/30/24 22:21 Plt Count 295 10^3/cmm (157-399) 03/30/24 22:21 MPV 9.2 fL (7.4-10.4) 03/30/24 22:21 Neut % (Auto) 54.4 % 03/30/24 22:21 Lymph % (Auto) 39.7 % 03/30/24 22:21 [place] % (Auto) 3.8 % 03/30/24 22:21 Eos % (Auto) 1.3 % 03/30/24 22:21 Baso % (Auto) 0.5 % 03/30/24 22:21 Neut # (Auto) 4.32 10^3/uL (1.8-7.7) 03/30/24 22:21 Lymph # (Auto) 3.2 10^3/uL (0.8-4.8) 03/30/24 22:21 [place] # (Auto) 0.3 10^3/uL (0.2-0.9) 03/30/24 22:21 Eos # (Auto) 0.1 10^3/uL (0.0-0.8) 03/30/24 22:21 Baso # (Auto) 0.0 10^3/uL (0.0-0.1) 03/30/24 22:21 Nucleated RBC % (auto) 0 % 03/30/24 22:21 Nucleated RBCs # 0.0 /100WBC 03/30/24 22:21 Sodium 148 mmol/L (136-145) H 03/30/24 22:21 Potassium 3.7 mmol/L (3.5-5.1) 03/30/24 22:21 Chloride 106 mmol/L (98-107) 03/30/24 22:21 Carbon Dioxide 26 mmol/L (22-29) 03/30/24 22:21 Anion Gap 19.7 (5-19) H 03/30/24 22:21 BUN 5 mg/dL (6-20) L 03/30/24 22:21 Creatinine 1.0 mg/dL (0.7-1.2) 03/30/24 22:21 GFR Calculation 83.6 mL/min (90-130) L 03/30/24 22:21 Glucose 116 mg/dL (65-115) H 03/30/24 22:21 Calculated Osmolality 304 mOsm/kg (285-295) H 03/30/24 22:21 Calcium 8.6 mg/dL (8.5-10.5) 03/30/24 22:21 Total Bilirubin 0.3 mg/dL (0.15-1.2) 03/30/24 22:21 AST 30 U/L (0-40) 03/30/24 22:21 ALT 40 U/L (0-41) 03/30/24 22:21 Alkaline Phosphatase 69 U/L (40-130) 03/30/24 22:21 Total Protein 7.2 g/dL (6.6-8.7) 03/30/24 22:21 Albumin 4.6 g/dL (3.5-5.2) 03/30/24 22:21 Globulin 2.6 g/dL (1.3-4.6) 03/30/24 22:21 Salicylates < 0.3 mg/dL (3-10) L 03/30/24 22:21 Acetaminophen < 5.0 ug/mL (10-30) L 03/30/24 22:21 Ethyl Alcohol 410 mg/dL (0-10) H* 03/30/24 22:21 No radiology studies performed this visit Discharge Plan Discharge Patient Disposition: Home Clinical Impression: Alcoholic intoxication Condition: Stable Prescriptions: No Action Zyrtec 10 mg Capsule 10 mg PO DAILY PRN (Reason: Allergy Symptoms) chlordiazepoxide HCl 25 mg capsule See Rx Instructions .ROUTE .COMPLEX Qty: 27 0RF Rx Instructions: Take 4 tabs q 6 hours on day 1. Take 2 tabs q 8 hours on day 2. Take 2 tabs q 12 hours on day 3. Take one tab daily on day 4. Discharge Orders: Discharge ED (Routine); Ordered 03/31/24 Ordered By: Kory Horvath Discharge Diet: Advance as tolerated Discharge Activity: Resume usual activity Patient Instructions: Alcohol Intoxication (ED) Activity Restrictions/Additional Instructions: Please refrain from using alcohol. Thank you for choosing [facility] for your healthcare needs today. Please realize that you were seen in the emergency department and that we are providing you with an emergency medical screening exam and this may not be a complete and all exclusive of all testing and/or medical workup we may need to determine your element or severity of your illness. It is very important that you follow-up as instructed with your primary care provider or specialist for the additional evaluation and to discuss your medical treatment plan. You may return to the emergency department should you have concerns or if your condition changes or worsens in any way. Coding Level of Care Code ED Concession Supervisor for Barry Baron
[2024-03-30 22:28] LABS: Basophils % 0.5 %; Eosinophils # 0.1 10^3/uL (0.0-0.8); Eosinophils % 1.3 %; Hematocrit 44.3 % (37-53); Lymphocytes # 3.2 10^3/uL (0.8-4.8); Lymphocytes % 39.7 %; Mean Corpuscular HGB Conc 33.6 g/dL (30-55); Mean Corpuscular Hemoglobin 31.9 pg (27-33); Mean Corpuscular Volume 94.9 fl (82-101); Mean Platelet Volume 9.2 fL (7.4-10.4); Monocytes # 0.3 10^3/uL (0.2-0.9); Monocytes % 3.8 %; Neutrophils # 4.32 10^3/uL (1.8-7.7); Neutrophils % 54.4 %; Nucleated Red Blood Cells % 0 %; Platelet Count 295 10^3/cmm (157-399); Red Blood Count 4.67 10^6/uL (3.85-5.65); White Blood Count 7.93 10^3/uL (3.29-11.43)
[2024-03-30 22:43] LABS: Alanine Aminotransferase 40 U/L (0-41); Albumin Level 4.6 g/dL (3.5-5.2); Alkaline Phosphatase 69 U/L (40-130); Anion Gap 19.7 (5-19); Aspartate Amino Transferase 30 U/L (0-40); Blood Urea Nitrogen 5 mg/dL (6-20); Calcium 8.6 mg/dL (8.5-10.5); Carbon Dioxide 26 mmol/L (22-29); Chloride 106 mmol/L (98-107); Globulin 2.6 g/dL (1.3-4.6); Glomerular Filtration Rate 83.6 mL/min (90-130); Glucose 116 mg/dL (65-115); Osmolality Calculated 304 mOsm/kg (285-295); Potassium 3.7 mmol/L (3.5-5.1); Sodium 148 mmol/L (136-145); Total Bilirubin 0.3 mg/dL (0.15-1.2); Total Protein 7.2 g/dL (6.6-8.7)
[2024-03-30 22:44] LABS: Acetaminophen < 5.0 ug/mL (10-30); Salicylate < 0.3 mg/dL (3-10)
[2024-03-30 22:45] LABS: Alcohol Level 410 mg/dL (0-10)
[2024-03-31] VITALS: BP 114/76; PULSE 85; RESP 18; O2SAT 94
[2024-03-31 02:00] VITALS: PULSE 90; RESP 16; O2SAT 97
[2024-03-31] MEDS: acetaminophen 500 mg Tablet 1000 MG PO (02:48)
[2024-03-31 04:00] VITALS: RESP 18; O2SAT 94
[2024-03-31 06:00] VITALS: PULSE 113; RESP 16; O2SAT 93
[2024-03-31 07:24] VITALS: BP 114/71; PULSE 88; O2SAT 95
== END 2024-03-31 07:27 | disposition home or self-care (01) ==
PROVIDERS: Emergency Provider Emergency Medicine
DX: F10.129 Alcohol abuse with intoxication, unspecified (principal); Y90.8 Blood alcohol level of 240 mg/100 ml or more; F17.220 Nicotine dependence, chewing tobacco, uncomplicated
CPT/HCPCS: 36415; 80053; 80307; 85025; 96372; 99284; J3411